=== PATIENT | male | born 1970 | race Caucasian/White ===

== ENCOUNTER 2018-04-13 15:18 | Outpatient (CLI) | payer MEDICARE, MEDICAID ==
[~2018-04-13 15:18] MED LIST: CHOL200035 PO; CLOB10TA PO; COL100C PO; LACO200T2 PO; MECL12.5 PO; OXCA600T5 PO; QUET-1 PO; RISP0.2555 PO; RISP0.5T74 PO; VITA1TAB PO
== END 2018-04-13 23:59 | disposition home or self-care (01) ==
LOC: RAD 15:18
PROVIDERS: ATTEND Family Medicine
DX: G40.909 Epilepsy, unspecified, not intractable, without status epilepticus (principal)
CPT/HCPCS: 95816

== ENCOUNTER 2019-06-09 13:47 | Emergency (ER) | payer MEDICARE, MEDICAID ==
[~2019-06-09] VITALS: Ht 193 cm; Wt 119.0 kg
[2019-06-09 14:22] VITALS: BP 119/77
[2019-06-09 15:22] LABS: BASOPHILS % (AUTO) 0.4 % (0-1); EOSINOPHILS % (AUTO) 0.5 % (0-6); HEMATOCRIT 44.8 % (42.0-52.0); HEMOGLOBIN 15.7 g/dl (14.0-17.9); LYMPHOCYTES # (AUTO) 1.4 X10'3 (1.1-4.8); LYMPHOCYTES % (AUTO) 24.8 % (21-51); MEAN CORPUSCULAR HEMOGLOBIN 34.1 PG (27.0-31.0); MEAN CORPUSCULAR VOLUME 97.6 FL (78-98); MEAN PLATELET VOLUME 8.4 FL (7.4-10.4); MONOCYTES # (AUTO) 0.5 X10'3 (0-0.9); MONOCYTES % (AUTO) 8.9 % (2-12); NEUTROPHILS # (AUTO) 3.8 X10'3 (1.8-7.7); NEUTROPHILS % (AUTO) 65.4 % (42-75); PLATELET COUNT 164 X10'3 (140-440); RED BLOOD COUNT 4.59 X10'6 (4.70-6.10); RED CELL DISTRIBUTION WIDTH 12.6 % (11.5-14.5); WHITE BLOOD COUNT 5.8 X10'3 (4.5-11.0)
[2019-06-09 15:38] LABS: ALANINE AMINOTRANSFERASE 26 U/L (12-78); ALBUMIN 4.1 G/DL (3.4-5.0); ALBUMIN/GLOBULIN RATIO 1.4 (1.1-1.5); ALKALINE PHOSPHATASE 89 IU/L (46-116); ANION GAP -1 (8-16); ASPARTATE AMINO TRANSFERASE 13 U/L (10-37); BILIRUBIN,TOTAL 0.4 MG/DL (0.1-1.0); BLOOD UREA NITROGEN 25 MG/DL (7-18); BUN/CREATININE RATIO 22.1 (5.4-32.0); CALCIUM 9.2 MG/DL (8.5-10.1); CHLORIDE 107 MMOL/L (99-107); CREATININE 1.13 MG/DL (0.60-1.10); GLUCOSE 105 MG/DL (70-104); POTASSIUM 3.9 MMOL/L (3.5-5.1); SODIUM 142 MMOL/L (135-145); TOTAL CARBON DIOXIDE 35.8 MMOL/L (24-32); TOTAL PROTEIN 7.1 G/DL (6.4-8.2); eGFR 68 ML/MIN
[2019-06-09] MEDS ORDERED: NAPR-56 PO (16:25)
== END 2019-06-09 16:37 | disposition home or self-care (01) ==
LOC: ER 13:47
DX: R07.89 Other chest pain (principal); G40.909 Epilepsy, unspecified, not intractable, without status epilepticus; E78.00 Pure hypercholesterolemia, unspecified; Z87.820 Personal history of traumatic brain injury; Z88.8 Allergy status to other drugs, medicaments and biological substances; Z79.899 Other long term (current) drug therapy
CPT/HCPCS: 36415; 71046; 80053; 84484; 85025; 93005; 99284

== ENCOUNTER 2020-05-19 16:28 | Emergency (ER) | payer MEDICARE, MEDICAID ==
[~2020-05-19] VITALS: Ht 193 cm; Wt 126.4 kg
[2020-05-19 16:36] VITALS: BP 146/70
[2020-05-19] MEDS ORDERED: CLOB10TA3 PO (17:55)
== END 2020-05-19 18:05 | disposition home or self-care (01) ==
LOC: ER 16:28
DX: R56.9 Unspecified convulsions (principal); Z88.8 Allergy status to other drugs, medicaments and biological substances; Z79.899 Other long term (current) drug therapy; E78.00 Pure hypercholesterolemia, unspecified
CPT/HCPCS: 99281

== ENCOUNTER 2020-12-02 10:36 | Emergency (ER) | payer BC, MEDICAID ==
[~2020-12-02] VITALS: Ht 193 cm; Wt 101.8 kg
[~2020-12-02 10:36] MED LIST changes: +CLOB10TA3 PO
[2020-12-02 10:44] VITALS: BP 114/74
== END 2020-12-02 12:17 | disposition home or self-care (01) ==
LOC: ER 10:38
DX: R00.2 Palpitations (principal); T42.3X5A Adverse effect of barbiturates, initial encounter; R07.89 Other chest pain; E78.00 Pure hypercholesterolemia, unspecified; Z86.69 Personal history of other diseases of the nervous system and sense organs; Z88.8 Allergy status to other drugs, medicaments and biological substances; Z79.899 Other long term (current) drug therapy; Y92.89 Other specified places as the place of occurrence of the external cause
CPT/HCPCS: 99281

== ENCOUNTER 2021-09-03 09:20 | Emergency (ER) | payer BC, MEDICAID ==
[~2021-09-03] VITALS: Ht 190.5 cm; Wt 135.4 kg
[~2021-09-03 09:20] MED LIST changes: +CLOB10TA17 PO; -CLOB10TA3 PO
[2021-09-03] MEDS ORDERED: normal saline 1000ML IV soln IV ONE (09:30)
[2021-09-03 09:50] LABS: BASOPHILS % (AUTO) 0.5 % (0-1); EOSINOPHILS % (AUTO) 0.4 % (0-6); HEMATOCRIT 43.6 % (42.0-52.0); HEMOGLOBIN 15.1 g/dl (14.0-17.9); LYMPHOCYTES # (AUTO) 1.5 X10'3 (1.1-4.8); LYMPHOCYTES % (AUTO) 25.8 % (21-51); MEAN CORPUSCULAR HEMOGLOBIN 32.9 PG (27.0-31.0); MEAN CORPUSCULAR HGB CONC 34.7 g/dL (33.0-36.5); MEAN CORPUSCULAR VOLUME 94.7 FL (78-98); MONOCYTES # (AUTO) 0.6 X10'3 (0-0.9); MONOCYTES % (AUTO) 9.4 % (2-12); NEUTROPHILS # (AUTO) 3.8 X10'3 (1.8-7.7); NEUTROPHILS % (AUTO) 63.9 % (42-75); PLATELET COUNT 147 X10'3 (140-440); RED CELL DISTRIBUTION WIDTH 12.6 % (11.5-14.5); WHITE BLOOD COUNT 5.9 X10'3 (4.5-11.0)
[2021-09-03 09:57] VITALS: BP 123/75
[2021-09-03 10:09] LABS: ALANINE AMINOTRANSFERASE 30 U/L (12-78); ALBUMIN 3.7 G/DL (3.4-5.0); ALBUMIN/GLOBULIN RATIO 1.2 (1.1-1.5); ALKALINE PHOSPHATASE 75 IU/L (46-116); ANION GAP 6 (8-16); ASPARTATE AMINO TRANSFERASE 26 U/L (10-37); BILIRUBIN,TOTAL 0.3 MG/DL (0.1-1.0); BLOOD UREA NITROGEN 23 MG/DL (7-18); BUN/CREATININE RATIO 23.5 (5.4-32.0); CALCIUM 8.7 MG/DL (8.5-10.1); CHLORIDE 107 MMOL/L (99-107); CREATININE 0.98 MG/DL (0.60-1.10); GLUCOSE 93 MG/DL (70-104); POTASSIUM 3.6 MMOL/L (3.5-5.1); SODIUM 143 MMOL/L (135-145); TOTAL CARBON DIOXIDE 29.7 MMOL/L (24-32); TOTAL PROTEIN 6.7 G/DL (6.4-8.2); eGFR 80 ML/MIN
[2021-09-03] MEDS ORDERED: dexamethasone sod phosphate 10mg/ml inj IV STA (11:11)
[2021-09-03] MEDS ORDERED: meclizine 12.5mg tablet PO ONE (11:15)
[2021-09-03 11:47] LABS: CLARITY,URINE CLEAR (Clear); COLOR,URINE YELLOW (Yellow); GLUCOSE, URINE NEGATIVE (Neg); KETONES,URINE NEGATIVE (Neg); LEUKOCYTE ESTERASE ,URINE NEGATIVE (Neg); NITRITES, URINE NEGATIVE (Neg); OCCULT BLOOD,URINE NEGATIVE (Neg); PH,URINE 7.5 (4.8-8.0); PROTEIN,URINE NEGATIVE (Neg); UROBILINOGEN,URINE 0.2 E.U/dL (0.2-1.0)
[2021-09-03 11:55] LABS: UA COLLECTION TYPE VOIDED
--- NOTE | 2021-09-03 12:40 | NUR ---
Pt given and understands d/c instuctions. Ambulatory with a steady gait. IV d/c'd, catheter was intact.
== END 2021-09-03 12:40 | disposition home or self-care (01) ==
LOC: ER 09:21
DX: R00.0 Tachycardia, unspecified (principal); R42 Dizziness and giddiness; R62.50 Unspecified lack of expected normal physiological development in childhood; E78.00 Pure hypercholesterolemia, unspecified; Z79.899 Other long term (current) drug therapy; Z88.8 Allergy status to other drugs, medicaments and biological substances
CPT/HCPCS: 36415; 71045; 80053; 81003; 84484; 85025; 93005; 96360; 99285; J7030

== ENCOUNTER 2022-04-25 19:44 | Emergency (ER) | payer BC, MEDICAID ==
[~2022-04-25] VITALS: Ht 193 cm; Wt 135.6 kg
[2022-04-25] MEDS ORDERED: levetiracetam inj 1,000 MG in normal saline 100ml IV soln 90 ML IV STA (19:56)
[2022-04-25] MEDS ORDERED: levetiracetam inj 1,000 MG in normal saline 100ml IV soln 100 ML IV STA (19:58)
[2022-04-25] MEDS ORDERED: normal saline 1000ML IV soln IVB ONE (20:00)
[2022-04-25 20:21] LABS: BASOPHILS # (AUTO) 0.1 X10'3 (0-0.2); EOSINOPHILS # (AUTO) 0.1 X10'3 (0-0.9); EOSINOPHILS % (AUTO) 1.1 % (0-6); HEMATOCRIT 42.3 % (42.0-52.0); HEMOGLOBIN 14.9 g/dl (14.0-17.9); LYMPHOCYTES # (AUTO) 1.6 X10'3 (1.1-4.8); LYMPHOCYTES % (AUTO) 26.4 % (21-51); MEAN CORPUSCULAR HEMOGLOBIN 33.7 PG (27.0-31.0); MEAN CORPUSCULAR HGB CONC 35.2 g/dL (33.0-36.5); MEAN CORPUSCULAR VOLUME 95.5 FL (78-98); MEAN PLATELET VOLUME 7.7 FL (7.4-10.4); MONOCYTES # (AUTO) 0.6 X10'3 (0-0.9); MONOCYTES % (AUTO) 8.9 % (2-12); NEUTROPHILS # (AUTO) 3.9 X10'3 (1.8-7.7); NEUTROPHILS % (AUTO) 62.6 % (42-75); PLATELET COUNT 166 X10'3 (140-440); RED BLOOD COUNT 4.43 X10'6 (4.70-6.10); RED CELL DISTRIBUTION WIDTH 13.2 % (11.5-14.5); WHITE BLOOD COUNT 6.2 X10'3 (4.5-11.0)
[2022-04-25 20:34] LABS: ALANINE AMINOTRANSFERASE 45 U/L (12-78); ALBUMIN/GLOBULIN RATIO 1.3 (1.1-1.5); ALKALINE PHOSPHATASE 88 IU/L (46-116); ANION GAP 6 (8-16); ASPARTATE AMINO TRANSFERASE 23 U/L (10-37); BILIRUBIN,TOTAL 0.3 MG/DL (0.1-1.0); BLOOD UREA NITROGEN 21 MG/DL (7-18); BUN/CREATININE RATIO 20.4 (5.4-32.0); CHLORIDE 107 MMOL/L (99-107); CREATININE 1.03 MG/DL (0.60-1.10); POTASSIUM 4.2 MMOL/L (3.5-5.1); SODIUM 143 MMOL/L (135-145); TOTAL CARBON DIOXIDE 30.3 MMOL/L (24-32); TOTAL PROTEIN 7.1 G/DL (6.4-8.2); eGFR 75 ML/MIN
[2022-04-25 20:38] LABS: GLUCOSE 134 MG/DL (70-104)
[2022-04-25 21:33] VITALS: BP 134/80
== END 2022-04-25 22:35 | disposition home or self-care (01) ==
LOC: ER 19:44
DX: R56.9 Unspecified convulsions (principal); E78.00 Pure hypercholesterolemia, unspecified; Z88.8 Allergy status to other drugs, medicaments and biological substances; Z79.899 Other long term (current) drug therapy; Z79.1 Long term (current) use of non-steroidal anti-inflammatories (NSAID); Z79.2 Long term (current) use of antibiotics
CPT/HCPCS: 36415; 80053; 85025; 96361; 96365; 99284; J1953; J3490; J7030

== ENCOUNTER 2023-09-03 15:36 | Emergency (ER) | payer BC, MEDICAID ==
[~2023-09-03] VITALS: Ht 193 cm; Wt 121.8 kg
[2023-09-03 15:47] VITALS: TEMP 98.6
[2023-09-03 18:07] LABS: RED BLOOD COUNT 4.09 X10'6 (4.70-6.10); WHITE BLOOD COUNT 4.8 X10'3 (4.5-11.0)
[2023-09-03 18:10] LABS: BASOPHILS % (AUTO) 0.4 % (0-1); EOSINOPHILS % (AUTO) 0.4 % (0-6); HEMATOCRIT 39.1 % (42.0-52.0); HEMOGLOBIN 14.3 g/dl (14.0-17.9); LYMPHOCYTES % (AUTO) 21.6 % (21-51); MEAN CORPUSCULAR HGB CONC 36.6 g/dL (33.0-36.5); MEAN CORPUSCULAR VOLUME 95.6 FL (78-98); MEAN PLATELET VOLUME 7.1 FL (7.4-10.4); MONOCYTES # (AUTO) 0.5 X10'3 (0-0.9); MONOCYTES % (AUTO) 11.4 % (2-12); NEUTROPHILS # (AUTO) 3.2 X10'3 (1.8-7.7); NEUTROPHILS % (AUTO) 66.2 % (42-75); PLATELET COUNT 169 X10'3 (140-440); RED CELL DISTRIBUTION WIDTH 12.6 % (11.5-14.5)
[2023-09-03 18:21] LABS: ALBUMIN 3.7 G/DL (3.4-5.0); ANION GAP 9 (8-16); BLOOD UREA NITROGEN 9 MG/DL (7-18); BUN/CREATININE RATIO 10.7 (10.0-20.0); CALCIUM 8.8 MG/DL (8.5-10.1); CHLORIDE 93 MMOL/L (99-107); CREATININE 0.84 MG/DL (0.60-1.10); ETHANOL < 10 MG/DL (<10); GLUCOSE 98 MG/DL (70-104); SODIUM 129 MMOL/L (135-145); TOTAL CARBON DIOXIDE 26.7 MMOL/L (24-32); eCRCL 122 ML/MIN; eGFR > 90 ML/MIN
[2023-09-03 20:24] LABS: PLATELET ESTIMATE NORMAL; TOTAL CELLS COUNTED 100
[2023-09-03 20:26] LABS: BURR CELLS FEW; SPHEROCYTES FEW
[2023-09-03 21:37] VITALS: BP 148/91; PULSE 67; RESP 13; O2SAT 100
== END 2023-09-03 20:00 | disposition home or self-care (01) ==
LOC: ER 15:37
DX: G40.909 Epilepsy, unspecified, not intractable, without status epilepticus (principal); E78.00 Pure hypercholesterolemia, unspecified; Z88.8 Allergy status to other drugs, medicaments and biological substances
CPT/HCPCS: 36415; 70450; 71045; 80048; 80320; 84484; 85007; 85025; 93005; 99285

== ENCOUNTER 2023-12-29 13:50 | Emergency (ER) | payer BC, MEDICAID ==
[~2023-12-29] VITALS: Ht 193 cm; Wt 113.7 kg
[~2023-12-29 13:50] MED LIST changes: -CLOB10TA17 PO; +CLOB10TA5 PO
[2023-12-29 14:07] VITALS: TEMP 98.4
[2023-12-29 15:25] VITALS: BP 111/79; PULSE 74; RESP 16; O2SAT 96
== END 2023-12-29 15:29 | disposition home or self-care (01) ==
LOC: ER 13:51
DX: S00.83XA Contusion of other part of head, initial encounter (principal); Z88.8 Allergy status to other drugs, medicaments and biological substances; W22.8XXA Striking against or struck by other objects, initial encounter; Y93.89 Activity, other specified; Y92.89 Other specified places as the place of occurrence of the external cause; Y99.8 Other external cause status
CPT/HCPCS: 99284

== ENCOUNTER 2024-06-27 13:10 | Emergency (ER) | payer BC, MEDICAID ==
[~2024-06-27] VITALS: Ht 193 cm; Wt 119.6 kg
[2024-06-27 15:19] LABS: BASOPHILS % (AUTO) 0.9 % (0-1); EOSINOPHILS % (AUTO) 0.4 % (0-6); HEMATOCRIT 37.7 % (42.0-52.0); HEMOGLOBIN 13.4 g/dl (14.0-17.9); LYMPHOCYTES # (AUTO) 0.9 X10'3 (1.1-4.8); LYMPHOCYTES % (AUTO) 18.8 % (21-51); MEAN CORPUSCULAR HEMOGLOBIN 34.4 PG (27.0-31.0); MEAN CORPUSCULAR HGB CONC 35.6 g/dL (33.0-36.5); MEAN CORPUSCULAR VOLUME 96.6 FL (78-98); MONOCYTES # (AUTO) 0.5 X10'3 (0-0.9); MONOCYTES % (AUTO) 10.7 % (2-12); NEUTROPHILS # (AUTO) 3.4 X10'3 (1.8-7.7); NEUTROPHILS % (AUTO) 69.2 % (42-75); PLATELET COUNT 192 X10'3 (140-440); RED CELL DISTRIBUTION WIDTH 13.4 % (11.5-14.5)
[2024-06-27 15:21] LABS: ALANINE AMINOTRANSFERASE 25 U/L (12-78); ALBUMIN 3.8 G/DL (3.4-5.0); ALBUMIN/GLOBULIN RATIO 1.5 (1.1-1.5); ALKALINE PHOSPHATASE 95 IU/L (46-116); ANION GAP 4 (8-16); ASPARTATE AMINO TRANSFERASE 13 U/L (10-37); BILIRUBIN,TOTAL 0.5 MG/DL (0.1-1.0); BLOOD UREA NITROGEN 8 MG/DL (7-18); BUN/CREATININE RATIO 10.7 (10.0-20.0); CALCIUM 8.9 MG/DL (8.5-10.1); CHLORIDE 93 MMOL/L (99-107); CREATININE 0.75 MG/DL (0.60-1.10); GLUCOSE 118 MG/DL (70-104); POTASSIUM 3.9 MMOL/L (3.5-5.1); SODIUM 127 MMOL/L (135-145); TOTAL CARBON DIOXIDE 29.8 MMOL/L (24-32); TOTAL PROTEIN 6.3 G/DL (6.4-8.2); eCRCL 135 ML/MIN; eGFR > 90 ML/MIN
[2024-06-27 15:33] VITALS: BP 139/85; PULSE 78; RESP 16; TEMP 98.5; O2SAT 98
== END 2024-06-27 15:35 | disposition home or self-care (01) ==
LOC: ER 13:11
DX: G40.802 Other epilepsy, not intractable, without status epilepticus (principal); E78.00 Pure hypercholesterolemia, unspecified; Z88.8 Allergy status to other drugs, medicaments and biological substances; Z79.899 Other long term (current) drug therapy
CPT/HCPCS: 36415; 80053; 85025; 99284

== ENCOUNTER 2024-12-10 09:18 | Emergency (ER) | payer BC, MEDICAID ==
[~2024-12-10] VITALS: Ht 193 cm; Wt 114.2 kg
[2024-12-10 09:24] VITALS: BP 132/72; PULSE 65; RESP 18; TEMP 97.8; O2SAT 99
[2024-12-10] MEDS ORDERED: LIDO700A47 TOP (10:41)
--- NOTE | 2024-12-10 10:41 | Physician Documentation ---
History of Present Illness ~ Chief Complaint: Back Pain Stated Complaint: BACK PAIN Time Seen by MD: 10:06 OK to notify your PCP?: Yes Primary Medical Doctor: CELINA Source: patient, other (caregiver) Mode of Arrival: POV Exam Limitations: no limitations HPI 54-year-old male who is developmentally delayed lives at a care facility arrives with caregiver due to back pain that started yesterday after he had a tonic- clonic seizure and hit his back on the corner of the table. Patient has a well known seizure disorder and states that he has seizures frequently. Yesterday after the seizure he did report that his back hurt but he still wanted to go to the [employer] and he walked all around at the fair grounds however today he woke up and stated the pain was worse and he wanted to come to the ER. He has been given Tylenol for his pain which has not helped. Patient denies shortness of breath, pain that is worse when he takes deep respirations, abdominal pain, chest pain. Patient denies any abrasions. Medication Reconciliation Allergies: Coded Allergies: Phenytoin Sodium Extended (Unverified Allergy, Unknown, 12/10/24) carbamazepine (Unverified Allergy, Unknown, 12/10/24) divalproex sodium (Unverified Allergy, Unknown, 12/10/24) phenytoin sodium (Unverified Allergy, Unknown, 12/10/24) Scheduled Cholecalciferol (Vitamin D3) (Vitamin D3), 4,000 UNIT PO BID, (Reported) Clobazam (Onfi), 10 MG PO BID, (Reported) Clobazam (Clobazam), 10 MG PO as directed below Docusate Sodium* (Colace*), 200 MG PO BID, (Reported) Lacosamide (Vimpat), 200 MG PO BID, (Reported) Lidocaine (Lidocaine), 1 PATCH TOP DAILY Meclizine Hcl* (Antivert*), 25 MG PO Q6H Oxcarbazepine (Trileptal), 1,200 MG PO DAILY, (Reported) Quetiapine Fumarate* (Seroquel*), 100 MG PO TID, (Reported) Risperidone (Risperdal), 0.25 MG PO DAILY, (Reported) Risperidone (Risperdal), 0.5 MG PO HS, (Reported) Vitamin B Comp W-C (Surbex*), 1 TAB PO DAILY, (Reported) Past Medical History Past Medical History: Seizures, High Cholesterol Past Surgical History: noncontributory Alcohol Use: None Drug Use: none Lives with: Other Lives In: Assisted Care Occupation: disabled Review of Systems All Other Systems at this time: Reviewed and Negative Physical Exam Physical Exam Vital Signs: Temperature: 97.8, Source: Oral, Heart Rate: 65, Respiratory Rate: 18, BP: 132/72, Pulse Oximetry: 99, Weight: 114.200 Oxygen Flow Rate: 0 Physical Exam General Appearance: Alert, WD/WN. NAD. HEENT: NCAT, PERRL, EOMI. Neck: Supple, trachea midline. Cardiovascular: RRR. No m/r/g. Lungs: CTAB. Breathing unlabored Musculoskeletal: Area where patient is experiencing pain has no erythema, abrasions or areas of ecchymosis Tenderness over left paraspinal muscles of thoracic spine, no midline tenderness Patient takes deep respirations and does not report any pain with doing so. Extremities: Normal inspection. No edema. Skin: Warm/dry, normal color Neurological: Alert and oriented x4, normal gait. Psychiatric: Affect congruent with mood. Progress Results/Orders Results/Orders Orders - AMRITA MEDRANO Thoracic Spine Complete (12/10/24 11:07) Completed Orders - AMRITA MEDRANO Thoracic Spine Complete (12/10/24 11:07) Lidocaine 5% Patch (Lidoderm 5% Patch) (12/10/24 10:33) Medications Received in ER Medications (Trade) Dose Ordered Sig/Grisel Route PRN Reason Start Time Stop Time Status Last Admin Dose Admin (Lidoderm 5% Patch) 2 patch STAT STAT TP 12/10/24 10:33 12/10/24 10:35 DC 12/10/24 10:44 2 PATCH Vital Signs 12/10/24 09:24 Temp 97.8 Pulse 65 Resp 18 B/P (MAP) 132/72 Pulse Ox 99 O2 Flow Rate 0 Medical Decision Making Differential Dx:Considerations: Include: AAA, Aortic dissection, Appendicitis, Bowel obstruction, Cholelithiasis, Cholangitis, DJD, Fracture, Hepatitis, HNP, Musculoskeletal pain, Pancreatitis, Pyelonephritis, Renal infarction, Strain, Urinary obstruction, Urolithiasis, Urinary tract infection, Other Differential Diagnosis Patient did not have midline tenderness over the thoracic spine but I still did an x-ray to make sure there was no evidence for compression fracture given his fall history and the fact that caregiver reported that she would feel better if we performed xray as well to rule out. Rib fx considered; however, patient had no pain with respirations or over his rib cage. Departure Time of Disposition: 10:39 Disposition: 01 HOME / SELF CARE / HOMELESS Impression: Primary Impression: Strain of thoracic region Qualified Codes: S29.019A - Strain of muscle and tendon of unspecified wall of thorax, initial encounter Condition: Stable Discharge Instructions: Acute Back Pain, Adult Additional Instructions: NO EVIDENCE OF FRACTURE CONTINUE TYLENOL AND I ALSO SENT RX FOR LIDOCAINE PATCHES TO YOUR PHARMACY Referrals: NO PRIMARY CARE PROVIDER (PCP) Prescriptions Lidocaine (Lidocaine) 5 % Adh..patch 1 PATCH TOP DAILY for pain for 30 Days, #30 PATCH 0 Refills Prov: AMRITA MEDRANO 12/10/24 Education Educated: Patient Educated regarding: diagnosis, treatment Signature Scribe Signature: x Attestation: AMRITA [place] Dec 10, 2024 10:41
[2024-12-10] MEDS: LIDOcaine 5% patch TP STA (10:44)
--- NOTE | 2024-12-10 11:24 | RADIOLOGY REPORT ---
INDICATION: MIDBACK PAIN S/P FALL YESTERDAY GROUND LEVEL TECHNIQUE: 4 views of the thoracic spine were obtained. COMPARISON: None FINDINGS: There is no evidence of fracture, subluxation and/or dislocation. Multilevel degenerative changes of the spine. The alignment is anatomical. The paravertebral soft tissues were unremarkable. IMPRESSION: 1. Of the visualized spine, there is no evidence for fracture or subluxation.
== END 2024-12-10 11:50 | disposition home or self-care (01) ==
LOC: ER 09:18
DX: S29.012A Strain of muscle and tendon of back wall of thorax, initial encounter (principal); E78.00 Pure hypercholesterolemia, unspecified; G40.909 Epilepsy, unspecified, not intractable, without status epilepticus; Z88.8 Allergy status to other drugs, medicaments and biological substances; W22.03XA Walked into furniture, initial encounter; Y93.89 Activity, other specified; Y92.89 Other specified places as the place of occurrence of the external cause; Y99.8 Other external cause status
CPT/HCPCS: 72074; 99284